=== PATIENT | male | born 1960 | race Caucasian/White ===

== ENCOUNTER 2017-10-17 05:40 | Day surgery (SDC) | payer OTHER ==
[~2017-10-17] VITALS: Ht 185.4 cm; Wt 108.9 kg
--- NOTE | ~2017-10-17 | OP ---
PATIENT NAME: SARATH MENDOSA MEDICAL RECORD: [id number] :62 LOCATION:D.OPS ADMISSION DATE: SURGEON: MARCO HERNANDEZ MD DATE OF OPERATION: 10/17/2017 PREOPERATIVE DIAGNOSIS: Umbilical hernia. POSTOPERATIVE DIAGNOSIS: Umbilical hernia. PROCEDURE: Umbilical hernia repair with 4.3 cm Proceed mesh. SURGEON: Marco Hernandez MD REPORT OF PROCEDURE: The patient's abdomen was prepped and draped in sterile fashion. A skin incision was made in the midline just above the umbilicus. Electrocautery was used to dissect through the subcutaneous tissue down to the hernia sac. The hernia sac was fat containing with a large amount of omentum. We excised the hernia sac down to the fascial edges. The fascial defect was about 2.5 cm in greatest diameter. We freed up the surface of the fascia in all directions and then freed up the undersurface of the fascia until we had a good clear path for lying down on mesh. The mesh was inserted in an underlay fashion and sutured down on all 4 sides using multiple interrupted 0 Prolenes. The wound was then irrigated out with normal saline. The fascia was then closed above the mesh using running 0 Vicryl. Subcutaneous tissues were reapproximated with interrupted 3-0 Vicryl and the skin incision was closed with running subcutaneous 5-0 Monocryl. A 10 mL of 0.25% Marcaine with epinephrine was infused into the surrounding tissues and the wounds were dressed appropriately. COMPLICATIONS: None. CONDITION: Stable. ANESTHESIA: General endotracheal and local. BLOOD LOSS: Minimal. TRANSINT:[id number] Voice Confirmation ID: [id number] DOCUMENT ID: [id number] MARCO HERNANDEZ MD at 0841 CC: [id number] DICTATION DATE: 10/17/17 09 [employer] SYSTEM: 10/17/17 1148 [facility] 10/17/[address] [id number]
[~2017-10-17 05:40] MED LIST: BIOTIN5 MG PO
[2017-10-17 06:37] VITALS: BP 156/102; Ht 185.4 cm; Wt 108.9 kg
[2017-10-17 06:49] LABS: BASOPHILS 0.1 % (0-2); EOSINOPHILS 1.4 % (0-7); HEMATOCRIT 46.8 % (42.0-54.0); HEMOGLOBIN 15.9 g/dL (13.5-17.5); IMMATURE GRANULOCYTES 0.3 % (0-5); LYMPHOCYTES 22.3 % (15-50); MCH 30.1 pg (26.0-34.0); MCV 88.6 fL (80.0-100.0); MONOCYTES 12.5 % (2-11); NEUTROPHILS 63.4 % (40-80); PLATELET COUNT 196 10x3/uL (130-400); RBC 5.28 10x6/uL (4.20-6.10); RDW 12.8 % (11.5-14.5); WBC 7.3 10x3/uL (4.8-10.8)
[2017-10-17 06:56] LABS: ANION GAP 11.5 mmol/L (8-16); CALCIUM 8.7 mg/dL (8.5-10.1); CARBON DIOXIDE 28.5 mmol/L (21.0-32.0); CREATININE - SERUM 1.1 mg/dL (0.6-1.3)
[2017-10-17] MEDS ORDERED: HYDROCODONE-APA1 TAB PO (09:01)
== END 2017-10-17 11:30 | disposition home or self-care (01) ==
LOC: D.OPS 05:40 → D.PAN 08:00 → D.OPS 08:00
PROVIDERS: Surgery
DX: K42.9 Umbilical hernia without obstruction or gangrene (principal); Z01.812 Encounter for preprocedural laboratory examination